=== PATIENT | female | born 1960 | race African-American/Black ===

== ENCOUNTER 2016-03-23 15:06 | Emergency (ER) | payer MEDICAID, OTHER ==
[~2016-03-23] VITALS: Ht 160 cm; Wt 81.6 kg
[~2016-03-23 15:06] MED LIST: ALBUTEROL SULF8.5 GM INH; HYDROCHLOROTH12.5 M2 ORAL; LEVAQUIN500 MG ORAL; LISINOPRIL2.5 MG ORAL; LORATADINE10 M1 PO
[2016-03-23 15:16] VITALS: BP 147/84
[2016-03-23] MEDS ORDERED: AMOXICILLIN500 MG ORAL (16:06)
[2016-03-23] MEDS ORDERED: ROBITUSSIN COU118 M4 PO (16:07)
[2016-03-23 16:14] VITALS: BP 147/84
--- NOTE | 2016-03-24 12:23 | Emergency Room Report ---
History of Present Illness General Chief Complaint: Flu Like Symptoms Source: Patient Present Illness HPI The pt is a 55 yo F presenting for sore throat, cough, and subjective fevers for 2 days. The pt denies sick contacts or recent travel. The pt denies SOB, CP , dizziness, NORTON, rash, abd pain Allergies: Coded Allergies: No Known Allergies (Unverified , 07/12/14) Patient History Past Medical History: see triage record Pertinent Family History: none Now: No Reviewed Nursing Documentation: PMH: Agreed, PSxH: Agreed Nursing Documentation-PMH Hx Hypertension: Yes Review of Systems All Other Systems: negative except mentioned in HPI Physical Exam Vital Signs Date Time Temp Pulse Resp B/P Pulse Ox O2 Delivery O2 Flow Rate FiO2 03/23/16 15:11 99.1 118 17 119/68 98 Room Air Sp02 EP Interpretation: reviewed, normal General Appearance: no apparent distress, alert, GCS 15, non-toxic Head: normocephalic, atraumatic Eyes: bilateral eye PERRL, bilateral eye normal inspection ENT: hearing grossly normal, no angioedema, normal voice, TMs + canals normal, uvula midline, moist mucus membranes, tonsillar swelling, pharyngeal erythema, tonsillar exudate Neck: full range of motion, supple/symm/no masses Respiratory: chest non-tender, lungs clear, normal breath sounds, no wheezing, speaking full sentences Cardiovascular #1: regular rate, rhythm, no edema Cardiovascular #2: 2+ carotid (R), 2+ carotid (L), 2+ radial (R), 2+ radial (L) , 2+ dorsalis pedis (R), 2+ dorsalis pedis (L) Gastrointestinal: normal bowel sounds, non tender, soft, non-distended, no guarding, no rebound Rectal: deferred Genitourinary: normal inspection, no CVA tenderness Musculoskeletal: back normal, gait/station normal, normal range of motion, non- tender Neurologic: alert, oriented x3, responsive, motor strength/tone normal, sensory intact, speech normal Psychiatric: judgement/insight normal, memory normal, mood/affect normal, no suicidal/homicidal ideation Reflexes: 3+ bicep (R), 3+ bicep (L), 3+ tricep (R), 3+ tricep (L), 3+ knee (R) , 3+ knee (L) Skin: normal color, no rash, warm/dry, well hydrated Lymphatic: no adenopathy Medical Decision Making PA Attestation Dr. Sun is my supervising physician. Patient management was discussed with my supervising physician Diagnostic Impression: Primary Impression: Pharyngitis, acute ER Course The pt is a 55 yo F presenting for sore throat, cough, and subjective fevers for 2 days. DDx: pharyngitis, bronchitis, allergies, sinusitis PE: Afebrile. NAD. HEENT: bilat tonsillar edema, erythema, and exudate. Uvula midline. Otherwise unremarkable. Lungs CTA bilat. The pt will be il'ed home with prescription for amoxicillin. ER precautions given Last Vital Signs Date Time Temp Pulse Resp B/P Pulse Ox O2 Delivery O2 Flow Rate FiO2 03/23/16 16:14 99.1 111 17 147/84 100 Room Air Status: improved Disposition: HOME, SELF-CARE Condition: Improved Scripts Guaifenesin/Dextromethorphan (Robitussin Cough-Chest Dm Liq) 118 Ml Liquid 10 ML PO Q4HR, #118 ML Prov: ERIN OWENS.A. 03/23/16 Amoxicillin* (AMOXIL*) 500 Mg Capsule 500 MG ORAL Q12HR, #20 CAP Prov: ERIN OWENS P.A. 03/23/16 Patient Instructions: Pharyngitis, Sore Throat Additional Instructions: I discussed my findings with the patient. All questions and concerns have been answered. Treatment and medication compliance have been addressed. I advised the patient that they need to follow up with PMD in 3-5 days. Return to ED if pain remains or worsens, cough worsens or remains, you notice blood in your sputum, you notice wheezing, you experience a fever, or if needed for any reason. Patient verbalized understanding of discharge instructions. ERIN OWENS Mar 24, 2016 12:23
== END 2016-03-23 16:15 | disposition home or self-care (01) ==
LOC: EMR 15:40
DX: J02.9 Acute pharyngitis, unspecified (principal); I10 Essential (primary) hypertension
CPT/HCPCS: 99284

== ENCOUNTER 2017-10-17 16:44 | Emergency (ER) | payer OTHER ==
[~2017-10-17] VITALS: Ht 167.6 cm; Wt 81.6 kg
[~2017-10-17 16:44] MED LIST changes: +AMOXICILLIN500 MG ORAL; +ROBITUSSIN COU118 M4 PO
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
[2017-10-17] MEDS ORDERED: ROBAXIN500 MG PO (17:45)
[2017-10-17] MEDS ORDERED: LIDODERM700 M1 TOPIC (17:45)
[2017-10-17] MEDS ORDERED: SOMA250 MG PO (17:45)
[2017-10-17 17:55] VITALS: BP 158/68
== END 2017-10-17 17:57 | disposition home or self-care (01) ==
LOC: EMR 17:28
DX: S16.1XXA Strain of muscle, fascia and tendon at neck level, initial encounter (principal); V43.52XA Car driver injured in collision with other type car in traffic accident, initial encounter; Y92.411 Interstate highway as the place of occurrence of the external cause; I10 Essential (primary) hypertension
CPT/HCPCS: 99284